=== PATIENT | female | born 1995 | race Hispanic/Latino ===

== ENCOUNTER → 2023-03-31 | Outpatient (CLI) | payer OTHER ==
[~2023-03-31] MED LIST: ERGO400C PO; PNV#1COM14 PO
[2023-03-31 14:49] LABS: HIV 1&2 ANTIBODY Non-Reactive (Negative); HIV-1 p24 Antigen Non-Reactive (Negative)
[2023-04-01 09:21] LABS: RAPID PLASMA REAGIN NONREACTIVE (NONREACTIVE)
== END | disposition home or self-care (01) ==
LOC: LAB 13:11
PROVIDERS: ATTEND Obstetrics & Gynecology
DX: Z01.419 Encounter for gynecological examination (general) (routine) without abnormal findings (principal)
CPT/HCPCS: 36415; 86592; 86695; 86696; 86701; 87340; 87390

== ENCOUNTER 2023-08-29 13:14 | Emergency (ER) | payer OTHER ==
[~2023-08-29] VITALS: Ht 160 cm; Wt 99.8 kg
[2023-08-29] MEDS ORDERED: LORA10TA7 PO (13:33)
[2023-08-29] MEDS ORDERED: AMOX500C2 PO (13:33)
[2023-08-29] MEDS ORDERED: FLUT16H NASAL (13:33)
[2023-08-29 13:34] VITALS: BP 112/52; PULSE 78; RESP 20
== END 2023-08-29 13:53 | disposition home or self-care (01) ==
LOC: EDH 13:14
DX: J32.0 Chronic maxillary sinusitis (principal); H92.02 Otalgia, left ear; Z79.899 Other long term (current) drug therapy

== ENCOUNTER → 2024-01-17 | Outpatient (CLI) | payer OTHER ==
[~2024-01-17] MED LIST changes: +AMOX500C2 PO; +DIPH50 PO; +FAMO-136 PO; +FLUT16H NASAL; +LORA10TA7 PO
[2024-01-17 09:35] LABS: BASOPHILS # (AUTO) 0.04 K/uL (0.00-0.20); BASOPHILS % (AUTO) 0.4 % (0.0-5.0); EOSINOPHILS # (AUTO) 0.07 K/uL (0.00-0.70); EOSINOPHILS % (AUTO) 0.7 % (0.0-8.0); IMMATURE GRANULOCYTE ABSOLUTE 0.03 K/uL (0-1); LYMPHOCYTES # (AUTO) 2.6 K/uL (1.0-4.8); LYMPHOCYTES % (AUTO) 24.2 % (21.0-51.0); MEAN CORPUSCULAR HEMOGLOBIN 28.3 pg (27.0-33.0); MEAN CORPUSCULAR HGB CONC 32.2 g/dL (32.0-36.0); MEAN CORPUSCULAR VOLUME 87.8 fL (79-99); MONOCYTES # (AUTO) 0.6 K/uL (0.1-1.0); MONOCYTES % (AUTO) 5.5 % (3.0-13.0); NEUTROPHILS # (AUTO) 7.3 K/uL (1.8-7.7); NEUTROPHILS % (AUTO) 68.9 % (40.0-77.0); PLATELET COUNT (AUTO) 302 K/uL (130-400); RED BLOOD CELL COUNT(AUTO) 4.67 MIL/uL (4.00-5.50); RED CELL DISTRIBUTION WIDTH 12.9 % (11.0-15.5); WHITE BLOOD COUNT (AUTO) 10.6 K/uL (4.8-10.8)
[2024-01-17 09:46] LABS: HEMOGLOBIN A1C 5.9 % (4.0-6.0)
[2024-01-17 10:16] LABS: ALBUMIN 3.6 g/dL (3.5-5.0); BILIRUBIN,TOTAL 0.7 mg/dL (0.2-1.0); CREATININE 0.7 mg/dL (0.5-1.0); THYROID STIMULATING HORMONE 1.26 uIU/mL (0.36-3.74); TOTAL PROTEIN, SERUM 7.2 g/dL (6.0-8.3)
[2024-01-17 10:24] LABS: APPEARANCE,URINE CLEAR (CLEAR); BILIRUBIN,URINE NEGATIVE (NEGATIVE); COLOR,URINE YELLOW (YELLOW); GLUCOSE, URINE (UA) NEGATIVE (NEGATIVE); KETONES,URINE NEGATIVE (NEGATIVE); LEUKOCYTE ESTERASE ,URINE NEGATIVE Leu/uL (NEGATIVE); NITRATE,URINE NEGATIVE (NEGATIVE); OCCULT BLOOD,URINE SMALL (NEGATIVE); PROTEIN,URINE NEGATIVE (NEGATIVE); UROBILINOGEN,URINE 0.2 mg/dL (0.2-1.0)
[2024-01-17 10:28] LABS: ADD UA MICROSCOPIC YES
[2024-01-17 10:36] LABS: MAGNESIUM 1.9 mg/dL (1.80-2.40)
[2024-01-17 10:57] LABS: MUCUS,URINE RARE LPF (None Seen); SQUAMOUS EPITHELIAL CELL,UR RARE /HPF (0-2)
== END | disposition home or self-care (01) ==
LOC: LAB 08:32
PROVIDERS: ATTEND Nurse Practitioner Family
DX: Z13.228 Encounter for screening for other metabolic disorders (principal); Z13.220 Encounter for screening for lipoid disorders; R53.82 Chronic fatigue, unspecified; E55.9 Vitamin D deficiency, unspecified; Z83.3 Family history of diabetes mellitus
CPT/HCPCS: 36415; 80053; 80061; 81001; 82306; 82607; 83036; 83735; 84443; 85025; 87086

== ENCOUNTER → 2024-04-12 | Outpatient (CLI) | payer OTHER ==
[2024-04-12 10:08] LABS: BASOPHILS # (AUTO) 0.03 K/uL (0.00-0.20); BASOPHILS % (AUTO) 0.3 % (0.0-5.0); EOSINOPHILS # (AUTO) 0.02 K/uL (0.00-0.70); EOSINOPHILS % (AUTO) 0.2 % (0.0-8.0); HEMATOCRIT 40.8 % (36-48); IMMATURE GRANULOCYTE ABSOLUTE 0.03 K/uL (0-1); LYMPHOCYTES # (AUTO) 2.3 K/uL (1.0-4.8); LYMPHOCYTES % (AUTO) 23.8 % (21.0-51.0); MEAN CORPUSCULAR HEMOGLOBIN 27.7 pg (27.0-33.0); MEAN CORPUSCULAR HGB CONC 31.6 g/dL (32.0-36.0); MEAN CORPUSCULAR VOLUME 87.6 fL (79-99); MONOCYTES # (AUTO) 0.6 K/uL (0.1-1.0); MONOCYTES % (AUTO) 5.7 % (3.0-13.0); NEUTROPHILS # (AUTO) 6.8 K/uL (1.8-7.7); NEUTROPHILS % (AUTO) 69.7 % (40.0-77.0); PLATELET COUNT (AUTO) 304 K/uL (130-400); RED BLOOD CELL COUNT(AUTO) 4.66 MIL/uL (4.00-5.50); RED CELL DISTRIBUTION WIDTH 13.4 % (11.0-15.5); WHITE BLOOD COUNT (AUTO) 9.8 K/uL (4.8-10.8)
[2024-04-12 10:16] LABS: HEMOGLOBIN A1C 5.8 % (4.0-6.0)
[2024-04-12 10:35] LABS: ALBUMIN 3.7 g/dL (3.5-5.0); BILIRUBIN,TOTAL 0.6 mg/dL (0.2-1.0); CREATININE 0.8 mg/dL (0.5-1.0); POTASSIUM 4.2 mmol/L (3.5-5.1); THYROID STIMULATING HORMONE 0.76 uIU/mL (0.36-3.74); TOTAL PROTEIN, SERUM 7.4 g/dL (6.0-8.3)
== END | disposition home or self-care (01) ==
LOC: LAB 09:13
PROVIDERS: ATTEND Student in an Organized Health Care Education/Training Program
DX: E66.01 Morbid (severe) obesity due to excess calories (principal)
CPT/HCPCS: 36415; 80053; 80061; 83036; 84443; 85025

== ENCOUNTER → 2024-07-14 | Outpatient (CLI) | payer OTHER ==
--- NOTE | 2024-07-14 09:40 | HMCIMG ---
US BREAST BILATERAL REASON: Unspecified lump in the left breast, unspecified quadrant. COMPARISON: None TECHNIQUE: Bilateral breast ultrasound study was performed. FINDINGS: Prominent ducts are noted in the retroareolar region of the left breast measuring 2 mm each. No evidence of cystic or hypoechoic mass is seen otherwise. There are bilateral axillary lymph nodes with largest on the right measuring 2.1 x 2.3 cm and left measuring 1.1 x 1.1 cm. IMPRESSION: No evidence of cystic or hypoechoic mass is seen of either breast. CATEGORY 2: BENIGN FINDINGS Recommend monthly self breast exam as well as annual clinical examination.
== END | disposition home or self-care (01) ==
LOC: RAH 08:58
PROVIDERS: ATTEND Obstetrics & Gynecology
DX: N63.20 Unspecified lump in the left breast, unspecified quadrant (principal)